=== PATIENT | female | born 2000 | race Caucasian/White ===

== ENCOUNTER 2020-01-27 10:55 | Emergency (ER) | payer OTHER ==
[2020-01-27] MEDS ORDERED: METHOCARBAMOL 750 MG TABLET PO ONE (11:11)
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
[2020-01-27 12:51] VITALS: BP 140/90
== END 2020-01-27 12:44 | disposition home or self-care (01) ==
LOC: ER 10:55
DX: M54.2 Cervicalgia (principal); M54.5 Low back pain; V44.5XXA Car driver injured in collision with heavy transport vehicle or bus in traffic accident, initial encounter
CPT/HCPCS: 99284; 72125; J3490